=== PATIENT | female | born 1950 | race Caucasian/White ===

== ENCOUNTER 2017-05-25 15:55 | Inpatient (IN) | payer MEDICARE ==
[~2017-05-25] VITALS: Ht 160 cm; Wt 59.9 kg
[2017-05-25] MEDS ORDERED: AMIT25TA PO (16:48)
[2017-05-25] MEDS ORDERED: ACET325T9 PO (16:48)
[2017-05-25] MEDS ORDERED: INSU100V13 SQ (16:48)
[2017-05-25] MEDS ORDERED: SODI45SP4 NS (16:48)
[2017-05-25] MEDS ORDERED: DIPH50CA PO (16:48)
[2017-05-25] MEDS ORDERED: LEVO112T4 PO (16:48)
[2017-05-25] MEDS ORDERED: LISI10TA2 PO (16:48)
[2017-05-25] MEDS ORDERED: CYCL5TAB PO (16:48)
[2017-05-25] MEDS ORDERED: INSU100C4 SQ (16:48)
[2017-05-25] MEDS ORDERED: LACT1CAP6 PO (16:48)
[2017-05-25] MEDS ORDERED: SERT50TA PO (16:48)
[2017-05-25] MEDS ORDERED: FENO145T PO (16:48)
[2017-05-25] MEDS ORDERED: CARV3.122 PO (16:48)
[2017-05-25] MEDS ORDERED: POTA20TA82 PO (16:48)
[2017-05-25] MEDS ORDERED: METF-620 PO (16:48)
[2017-05-25] MEDS ORDERED: ATOR40TA59 PO (16:48)
[2017-05-25] MEDS ORDERED: diphenhydrAMINE HCL 25 MG CAPSULE PO PRN (17:00)
[2017-05-25] MEDS: LISINOPRIL 10 MG TABLET PO SCH (17:00)
[2017-05-25] MEDS: CYCLOBENZAPRINE 10 MG TABLET. PO SCH ×2 (17:00→21:25)
[2017-05-25] MEDS ORDERED: ACETAMINOPHEN 325 MG TABLET. PO PRN (17:00)
[2017-05-25] MEDS ORDERED: SODIUM CHLORIDE 0.65% NASAL SPRAY 45ML BOTTLE. NS PRN (17:00)
[2017-05-25] MEDS: CARVEDILOL 3.125 MG TABLET. PO SCH (18:16)
[2017-05-25] MEDS: predniSONE 10 MG TABLET PO SCH (18:17)
[2017-05-25 19:00] VITALS: BP 116/40
[2017-05-25] MEDS: IPRATRPIUM/ALBUTEROL 0.5/2.5MG 3 ML NEBU. NEB SCH (20:00)
[2017-05-25] MEDS ORDERED: diphenhydrAMINE HCL 25 MG CAPSULE PO ONE (21:00)
[2017-05-25] MEDS ORDERED: FAMOTIDINE 20 MG TABLET. PO ONE (21:00)
[2017-05-25] MEDS: AMITRIPTYLINE HCL 25 MG TABLET. PO SCH (21:25)
[2017-05-25] MEDS: LACTOBACILLUS RHAMNOSUS GG 1 CAPSULE. PO SCH (21:25)
[2017-05-25] MEDS: ATORVASTATIN CALCIUM 40 MG TABLET. PO SCH (21:25)
[2017-05-25 23:00] VITALS: BP 124/57
[2017-05-26] VITALS (7 sets, daily range): BP systolic 103–120; BP diastolic 44–61
[2017-05-26] MEDS: predniSONE 10 MG TABLET PO SCH ×2 (00:11→06:06)
[2017-05-26 05:28] LABS: BASO % 0 % (0-3); EOS % 0 % (0-3); HEMATOCRIT 38.5 % (36.0-47.0); HEMOGLOBIN 12.6 g/dL (12.0-15.5); LYMPH # 0.4 x10^3/uL (1.0-4.8); LYMPH % 8 % (24-48); MEAN CORPUSCULAR HEMOGLOBIN 26 pg (25-35); MEAN CORPUSCULAR HGB CONC 33 g/dL (31-37); MEAN CORPUSCULAR VOLUME 80 fL (79-100); MONO % 2 % (0-9); NEUT % 90 % (31-73); PLATELET COUNT 164 x10^3/uL (140-400); RED BLOOD COUNT 4.84 x10^6/uL (3.50-5.40); RED CELL DISTRIBUTION WIDTH 14.7 % (11.5-14.5); WHITE BLOOD COUNT 5.4 x10^3/uL (4.0-11.0)
[2017-05-26 05:34] LABS: INR 1.1 (0.8-1.1); PROTHROMBIN TIME PATIENT 13.2 SEC (11.7-14.0)
[2017-05-26 05:40] LABS: ALBUMIN 3.7 g/dL (3.4-5.0); ALBUMIN/GLOBULIN RATIO 0.9 (1.0-1.7); CALCIUM 9.5 mg/dL (8.5-10.1); CREATININE 0.8 mg/dL (0.6-1.0); GFR 71.3; POTASSIUM 4.4 mmol/L (3.5-5.1); TOTAL BILIRUBIN 0.8 mg/dL (0.2-1.0); TOTAL PROTEIN 7.9 g/dL (6.4-8.2)
[2017-05-26] MEDS ORDERED: diphenhydrAMINE HCL 25 MG CAPSULE PO PRN (06:00)
[2017-05-26] MEDS ORDERED: FAMOTIDINE 20 MG TABLET. PO PRN (06:00)
[2017-05-26] MEDS: LEVOTHYROXINE 112 MCG TABLET PO SCH (06:06)
[2017-05-26] MEDS ORDERED: LIDOCAINE 2% 20 ML VIAL. ONE (07:15)
[2017-05-26] MEDS ORDERED: IOHEXOL 300 MG/ML 100ML VIAL. ONE (07:15)
[2017-05-26] MEDS: IPRATRPIUM/ALBUTEROL 0.5/2.5MG 3 ML NEBU. NEB SCH ×4 (07:32→20:19)
--- NOTE | 2017-05-26 08:16 | PDOC ---
MODERATE SEDATION ASSESSMENT RISKS/ALTERNATIVES Risks/Alternatives Risks and alternatives of this type of sedation and procedure discussed with: RISK/ALTERNATIVES: Patient H & P ON CHART H & P H & P on chart and reviewed for co-morbid conditions and appropriate labs. H&P ON CHART: Yes STATUS PREG STATUS ASSESSED: N/A MEDS/ALLERGIES REVIEWED Meds/Allergies Reviewed Medications and Allergies including time and route of recently administered narcotics and sedatives. MEDS/ALLERGIES REVIEWED: Yes ASA RATING ASA RATING: II AIRWAY ASSESSMENT Airway Assessment Airway patency, oral function limitations, presence of caps, crowns, dentures, partials, and ability to extend neck assessed. AIRWAY ASSESSMENT: Yes MALLAMPATI SCORE MALLAMPATI SCORE: II PRE-SEDATION ASSESSMENT PRE-SEDATION ASSESSMENT: Yes HIREN KILGORE MD May 26, 2017 08:16
[2017-05-26] MEDS: LISINOPRIL 10 MG TABLET PO SCH (09:00)
[2017-05-26] MEDS: CARVEDILOL 3.125 MG TABLET. PO SCH ×2 (09:16→18:22)
[2017-05-26 09:34] LABS: ANISOCYTOSIS PRESENT; PLT ESTIMATE ADEQUATE (ADEQUATE); POLYCHROMASIA PRESENT
[2017-05-26] MEDS ORDERED: fentaNYL PF VIAL 100 MCG/2 ML VIAL ONE (10:27)
[2017-05-26] MEDS ORDERED: MIDAZOLAM HCL/PF 2 MG/2 ML VIAL. ONE (10:27)
[2017-05-26] MEDS ORDERED: methylPREDNISolone SOD SUCC PF 125 MG/2 ML VIAL. ONE (10:27)
[2017-05-26] MEDS ORDERED: diphenhydrAMINE 50 MG/ML VIAL ONE (10:39)
[2017-05-26] MEDS ORDERED: LIDOCAINE 2% 20 ML VIAL. IJ ONE (10:45)
[2017-05-26] MEDS ORDERED: methylPREDNISolone SOD SUCC PF 125 MG/2 ML VIAL. IV ONE (10:45)
[2017-05-26] MEDS ORDERED: IOHEXOL 300 MG/ML 100ML VIAL. IART ONE (10:45)
[2017-05-26] MEDS ORDERED: diphenhydrAMINE 50 MG/ML VIAL IVP ONE (10:45)
[2017-05-26] MEDS ORDERED: MIDAZOLAM HCL/PF 2 MG/2 ML VIAL. IV ONE (10:45)
[2017-05-26] MEDS ORDERED: fentaNYL PF VIAL 100 MCG/2 ML VIAL IV ONE (10:45)
[2017-05-26] MEDS: POTASSIUM CHLORIDE 20 MEQ TABLET.ER. PO SCH ×2 (13:02→18:23)
[2017-05-26] MEDS: LACTOBACILLUS RHAMNOSUS GG 1 CAPSULE. PO SCH ×2 (13:02→21:15)
[2017-05-26] MEDS: FENOFIBRATE,MICRONIZED 134 MG CAPSULE PO SCH (13:03)
[2017-05-26] MEDS: CYCLOBENZAPRINE 10 MG TABLET. PO SCH ×3 (13:03→21:15)
[2017-05-26] MEDS: INSULIN DETEMIR 300 UNITS/3 ML INSULN.PEN. SQ SCH ×2 (13:06→21:20)
[2017-05-26] MEDS: INSULIN ASPART 300 UNITS/3 ML INSULN.PEN SQ SCH ×2 (13:07→18:26)
[2017-05-26] MEDS: SERTRALINE 50 MG TABLET. PO SCH (13:10)
--- NOTE | 2017-05-26 13:26 | CARD ---
APPROVED REPORT Procedure(s) performed: Moderate Sedation: 41 Minutes LHC, Coronary angiography, Left ventriculogram HISTORY The patient is a 66 year-old female with a history of : previous CHF. INDICATION The indication(s) include : dyspnea. PROCEDURE NARRATIVE The patient was brought electively to the cardiac catheterization lab. A timeout was performed confi rming the patient's name, date of , procedure, and site of procedure. All necessary personnel w ere wearing the appropriate protective equipment and radiation monitor devices. After explaining the risks and benefits of the procedure and alternatives, informed consent was obtained. (See nursing no salyl for medications administered). The right groin was sterilely prepped and draped in the usual fas hion. The right groin was infiltrated with 10 mL of 2% lidocaine for subcutaneous anesthesia. A 5F sheath was inserted into the right femoral artery without difficulty. Right and left coronary angiog charly was performed using 5Fr JR4 and JL4 catheters. Left ventricular end diastolic pressure was obt ained with a pigtail catheter and pullback was performed after left ventriculography. All catheter e xchanges and advancements were performed over a guidewire. At case completion the right groin sheath was removed and hemostasis was achieved with manual compression. The patient tolerated the procedure well and there were no immediate complications. HEMODYNAMICS: LVEDP 25 mm Hg No gradient on LV to aortic pullback. LEFT VENTRICULOGRAM: EF 35% *Severe global hypokinesis. *No significant mitral regurgitation. CORONARY ANGIOGRAPHY: LM is a large caliber vessel with normal angiographic appearance. LAD is a large caliber vessel with normal angiographic appearance. D1 is a moderate caliber vessel with normal angiographic appearance. Ramus is a small caliber vessel with normal angiographic apeparance. LCx is a moderate caliber non-dominant vessel with normal angiographic appearance. OM1 is a moderate caliber vessel with normal angiographic appearance. RCA is a large caliber dominant vessel with normal angiographic appearance. RPDA is a small caliber vessel with normal angiographic appearance. Conclusion 1. Moderately elevated left ventricular filling pressure and moderate LV dysfunction. EF 35% 2. No significant coronary artery disease. Recommendations Aggressive Medical Therapy
[2017-05-26] MEDS ORDERED: ENOXAPARIN 40 MG/0.4 ML SYRINGE. SQ SCH (17:00)
[2017-05-26] MEDS: ATORVASTATIN CALCIUM 40 MG TABLET. PO SCH (21:15)
[2017-05-26] MEDS: AMITRIPTYLINE HCL 25 MG TABLET. PO SCH (21:15)
--- NOTE | 2017-05-26 22:07 | PN ---
DATE: 05/26/2017 SUBJECTIVE: The patient is a 66-year-old female patient who was transferred yesterday from [facility] where she was admitted with a complaint of recurrent episode of chest pain and shortness of breath. She has been having recurrent episodes of orthopnea and paroxysmal nocturnal dyspnea. It has been going on for almost a month and half. She has also poorly controlled diabetes, which she saw an medical care evaluation specialist and her insulin regimen has been adjusted. When she came to the Emergency Room, she was also diagnosed with bilateral lower lobe infiltrate versus edema. Her D-dimer was elevated and did have lactic acidosis. Her three sets of cardiac enzymes that were negative for myocardial infarction. Her beta natriuretic peptide was elevated at 2600. She had an echocardiogram which showed that she has left ventricular systolic dysfunction with an ejection fraction of 30% with mild mitral regurgitation and mild tricuspid regurgitation. Her pulmonary artery pressure was estimated at 42 mmHg with no evidence of significant pericardial effusion. Account Retention Representative recommended cardiac catheterization to which she agreed and was transferred to this facility. She is scheduled for cardiac catheterization this morning. On questioning her, she denied any complaints. She has had no further episodes of chest pain. No orthopnea or paroxysmal nocturnal dyspnea and she had a good night sleep. PHYSICAL EXAMINATION: GENERAL: When I examined her, she looked slightly pale with no jaundice or cyanosis, some thyromegaly. No jugular venous distention. No limb edema. VITAL SIGNS: Her heart rate was 93, blood pressure was 113/45, temperature was 97.3, respiratory rate was 20 and oxygen saturation was 97% on room air. HEAD, EYES, EARS, NOSE AND THROAT: Showed normocephalic and atraumatic. NECK: Supple. HEART: Showed normal first and second heart sounds with no gallop, rub or murmur. CHEST: Clear to auscultation. No crepitation or rhonchi. ABDOMEN: Distended, soft and nontender. NEUROLOGIC: She is awake, alert and responding appropriately. Cranial nerves are intact. She moves her extremities without difficulty. She ambulates without assistance or assistive devices. LABORATORY DATA: Her lab work this morning showed a white cell count 5400, hemoglobin 12.5, hematocrit 38, MCV 80 and a platelet count of 164,000. Her chemistry showed a serum sodium of 135, potassium 4.4, chloride 98, bicarbonate 26, anion gap of 11, BUN 19, creatinine 0.8, estimated GFR was 71 mL per minute, her glucose was 199 and calcium was 9.5. Total bilirubin, AST, ALT, alkaline phosphatase were normal. Her prothrombin time was 13.2 and INR of 1.1. ASSESSMENT: 1. Acute systolic congestive heart failure with ejection fraction of 30%, responding well to IV Lasix. She is now on LUNA inhibitors and beta blockers. 2. Chest pain with three sets of cardiac enzymes that are negative. EKG showed no evidence of ischemic changes; however, ejection fraction is decreased to 30%. 3. Hypertension, well controlled. 4. Hyperlipidemia for which she is on Lipitor. 5. Type 2 diabetes for which she is on metformin, NovoLog and Levemir insulin. I held her metformin as well as her Levemir and NovoLog until this morning as she was kept n.p.o. from midnight last night and she is scheduled for cardiac catheterization. I would reconcile all her medication and she can restart them after the cardiac catheterization except the metformin. MARCELO CROW MD DR: LILIAM/erhan JOB#: [id number] / [id number]
[2017-05-27 03:05] VITALS: BP 115/56
[2017-05-27] MEDS: LEVOTHYROXINE 112 MCG TABLET PO SCH (06:17)
[2017-05-27 07:00] VITALS: BP 109/40
--- NOTE | 2017-05-27 07:16 | HP ---
ADMIT DATE: 05/26/2017 SUBJECTIVE: The patient is a 66-year-old female patient who was transferred yesterday from [facility] where she was admitted with a complaint of recurrent episode of chest pain and shortness of breath. She has been having recurrent episodes of orthopnea and paroxysmal nocturnal dyspnea. It has been going on for almost a month and half. She has also poorly controlled diabetes, which she saw an therapist rrt and her insulin regimen has been adjusted. When she came to the Emergency Room, she was also diagnosed with bilateral lower lobe infiltrate versus edema. Her D-dimer was elevated and did have lactic acidosis. Her three sets of cardiac enzymes that were negative for myocardial infarction. Her beta natriuretic peptide was elevated at 2600. She had an echocardiogram which showed that she has left ventricular systolic dysfunction with an ejection fraction of 30% with mild mitral regurgitation and mild tricuspid regurgitation. Her pulmonary artery pressure was estimated at 42 mmHg with no evidence of significant pericardial effusion. Snowboarding Instructor recommended cardiac catheterization to which she agreed and was transferred to this facility. She is scheduled for cardiac catheterization this morning. On questioning her, she denied any complaints. She has had no further episodes of chest pain. No orthopnea or paroxysmal nocturnal dyspnea and she had a good night sleep. PHYSICAL EXAMINATION: GENERAL: When I examined her, she looked slightly pale with no jaundice or cyanosis, some thyromegaly. No jugular venous distention. No limb edema. VITAL SIGNS: Her heart rate was 93, blood pressure was 113/45, temperature was 97.3, respiratory rate was 20 and oxygen saturation was 97% on room air. HEAD, EYES, EARS, NOSE AND THROAT: Showed normocephalic and atraumatic. NECK: Supple. HEART: Showed normal first and second heart sounds with no gallop, rub or murmur. CHEST: Clear to auscultation. No crepitation or rhonchi. ABDOMEN: Distended, soft and nontender. NEUROLOGIC: She is awake, alert and responding appropriately. Cranial nerves are intact. She moves her extremities without difficulty. She ambulates without assistance or assistive devices. LABORATORY DATA: Her lab work this morning showed a white cell count 5400, hemoglobin 12.5, hematocrit 38, MCV 80 and a platelet count of 164,000. Her chemistry showed a serum sodium of 135, potassium 4.4, chloride 98, bicarbonate 26, anion gap of 11, BUN 19, creatinine 0.8, estimated GFR was 71 mL per minute, her glucose was 199 and calcium was 9.5. Total bilirubin, AST, ALT, alkaline phosphatase were normal. Her prothrombin time was 13.2 and INR of 1.1. ASSESSMENT: 1. Acute systolic congestive heart failure with ejection fraction of 30%, responding well to IV Lasix. She is now on LUNA inhibitors and beta blockers. 2. Chest pain with three sets of cardiac enzymes that are negative. EKG showed no evidence of ischemic changes; however, ejection fraction is decreased to 30%. 3. Hypertension, well controlled. 4. Hyperlipidemia for which she is on Lipitor. 5. Type 2 diabetes for which she is on metformin, NovoLog and Levemir insulin. I held her metformin as well as her Levemir and NovoLog until this morning as she was kept n.p.o. from midnight last night and she is scheduled for cardiac catheterization. I would reconcile all her medication and she can restart them after the cardiac catheterization except the metformin. MARCELO CROW MD DR: LILIAM/rehan JOB#: [id number] / [id number]
[2017-05-27] MEDS: IPRATRPIUM/ALBUTEROL 0.5/2.5MG 3 ML NEBU. NEB SCH ×3 (07:40→15:13)
[2017-05-27 09:05] LABS: CALCIUM 9.6 mg/dL (8.5-10.1); CREATININE 0.8 mg/dL (0.6-1.0); GFR 71.3; POTASSIUM 4.2 mmol/L (3.5-5.1)
[2017-05-27] MEDS: INSULIN DETEMIR 300 UNITS/3 ML INSULN.PEN. SQ SCH (09:08)
[2017-05-27] MEDS: INSULIN ASPART 300 UNITS/3 ML INSULN.PEN SQ SCH ×2 (09:09→12:40)
[2017-05-27] MEDS: POTASSIUM CHLORIDE 20 MEQ TABLET.ER. PO SCH (09:13)
[2017-05-27] MEDS: LACTOBACILLUS RHAMNOSUS GG 1 CAPSULE. PO SCH (09:13)
[2017-05-27] MEDS: CARVEDILOL 3.125 MG TABLET. PO SCH (09:14)
[2017-05-27] MEDS: LISINOPRIL 10 MG TABLET PO SCH (09:15)
[2017-05-27] MEDS: SERTRALINE 50 MG TABLET. PO SCH (09:15)
[2017-05-27] MEDS ORDERED: LEVO500T59 PO (09:15)
[2017-05-27] MEDS: CYCLOBENZAPRINE 10 MG TABLET. PO SCH ×2 (09:15→14:00)
[2017-05-27] MEDS: FENOFIBRATE,MICRONIZED 134 MG CAPSULE PO SCH (09:15)
[2017-05-27 11:00] VITALS: BP 112/56
[2017-05-27] MEDS ORDERED: METO-239 PO (11:54)
[2017-05-27] MEDS ORDERED: FURO-69 PO (11:54)
--- NOTE | 2017-05-27 11:56 | PDOC ---
ALONDRA LUIS APRN 05/27/17 1156: CARDIO Progress Notes Date and Time Date of Service 05/27/17 Time of Evaluation 1015 Subjective Subjective: No Chest Pain, No shortness of breath, No Palpitations, Other Vitals Vitals Vital Signs Date Time Temp Pulse Resp B/P (MAP) Pulse Ox O2 Delivery O2 Flow Rate FiO2 05/27/17 11:42 Room Air 05/27/17 11:00 97.7 97 18 112/56 (74) 100 97.7 Weight Weight [ ] Laboratory Labs Laboratory Tests Test 05/26/17 16:35 05/26/17 20:38 05/27/17 07:56 05/27/17 08:50 Glucose (Fingerstick) 376 mg/dL (70-99) 329 mg/dL (70-99) 251 mg/dL (70-99) Sodium Level 139 mmol/L (136-145) Potassium Level 4.2 mmol/L (3.5-5.1) Chloride Level 101 mmol/L (98-107) Carbon Dioxide Level 28 mmol/L (21-32) Anion Gap 10 (6-14) Blood Urea Nitrogen 29 mg/dL (7-20) Creatinine 0.8 mg/dL (0.6-1.0) Estimated GFR (Cockcroft-Gault) 71.3 Glucose Level 250 mg/dL (70-99) Calcium Level 9.6 mg/dL (8.5-10.1) Physical Exam HEENT: Neck Supple W Full Motion LUNGS: Clear to Auscultation Heart: S1S2, RRR Extremities: No Edema Neurology: alert, oriented, follow commands Assessment Assessment 1. Acute systolic heart failure with NICM; LVEF 30%. 2. Hypertension 3. Hyperlipidemia Recommendations Heart cath showed elevated filling pressures; add daily low-dose diuretic Discontinue BID potassium replacement 2Gm Na diet Convert Coreg to Toprol for better rate control May discharge from a CV standpoint and f/u in our [place] office in 3-4 weeks. HIREN KILGORE MD 05/28/17 0609: CARDIO Progress Notes Plan Plan Late entry for 05/27/2017. Pt. seen and examined. Agree with above SUPERVISOR [employer]ER[employer]SEMBL[employer] note. Thanks. ALONDRA LUIS APRN May 27, 2017 11:56 HIREN KILGORE MD May 28, 2017 06:09
--- NOTE | 2017-05-27 13:46 | PDOC2 ---
Chief Complaint: Chief Complaint: Wound on left heel Problems: (1) Non-pressure chronic ulcer of left heel and midfoot with necrosis of muscle (2) Type 2 diabetes mellitus with foot ulcer Vital Signs: Vital Signs: Vital Signs Date Time Temp Pulse Resp B/P (MAP) Pulse Ox O2 Delivery O2 Flow Rate FiO2 05/26/17 07:00 97.3 93 20 113/45 (67) 97 Room Air 97.3 Vital Signs Date Time Temp Pulse Resp B/P (MAP) Pulse Ox O2 Delivery O2 Flow Rate FiO2 05/27/17 11:42 Room Air 05/27/17 11:00 97.7 97 18 112/56 (74) 100 97.7 Allergies: Allergies: Allergies Coded Allergies Type Severity Reaction Last Updated Verified Iodinated Contrast- Oral and IV Dye Allergy Severe 05/26/17 Yes Penicillins Allergy Intermediate 05/25/17 Yes Sulfa (Sulfonamide Antibiotics) Allergy Intermediate 05/25/17 Yes Medications: Home Meds Active Scripts Furosemide (LASIX) 20 Mg Tablet, 1 TAB PO DAILY, #90 TAB 1 Refill Prov:ALONDRA LUIS APRN 05/27/17 Metoprolol Succinate (METOPROLOL SUCCINATE ( XL )) 25 Mg Tab.er.24h, 1 TAB PO DAILY, #30 TAB 5 Refills Prov:ALONDRA LUIS APRN 05/27/17 Reported Medications Insulin Aspart (NOVOLOG) 100 Unit/1 Ml Cartridge, 20 UNIT SQ TIDWMEALS, EACH 05/25/17 Metformin Hcl (METFORMIN HCL) 1,000 Mg Tablet, 1000 MG PO BIDWMEALS for ANTI- DIABETIC, TAB 0 Refills 05/25/17 Diphenhydramine Hcl (DIPHENHYDRAMINE HCL) 50 Mg Capsule, 0.5 CAP PO Q6HRS Y for ITCHING, #30 CAP 1 Refill 05/25/17 Sodium Chloride (Saline Mist) 44 Ml [place], 44 ML NS Q1HR Y for nasal congestion , SPRAY 05/25/17 Sertraline Hcl (ZOLOFT) 50 Mg Tablet, 1 TAB PO DAILY, #30 TAB 2 Refills 05/25/17 Potassium Chloride (POTASSIUM CHLORIDE) 20 Meq Tablet.er, 20 MEQ PO BID, TAB.SR 05/25/17 Lisinopril (LISINOPRIL) 10 Mg Tablet, 1 TAB PO DAILY, #30 TAB 5 Refills 05/25/17 Levothyroxine Sodium (LEVOTHYROXINE SODIUM) 112 Mcg Tablet, 1 TAB PO DAILY, #30 TAB 5 Refills 05/25/17 Lactobacillus Acidophilus (PROBIOTIC) 1 Each Capsule, 1 EACH PO BID, CAP 05/25/17 Insulin Detemir (LEVEMIR) 100 Unit/1 Ml Vial, 62 UNIT SQ BID, VIAL 05/25/17 Fenofibrate Nanocrystallized (TRICOR) 145 Mg Tablet, 1 TAB PO DAILY, #30 TAB 5 Refills 05/25/17 Cyclobenzaprine Hcl (CYCLOBENZAPRINE HCL) 5 Mg Tablet, 1 TAB PO TID, #30 TAB 05/25/17 Carvedilol (CARVEDILOL) 3.125 Mg Tablet, 1 TAB PO BID, #60 TAB 3 Refills 05/25/17 Atorvastatin Calcium (ATORVASTATIN CALCIUM) 40 Mg Tablet, 1 TAB PO DAILY, #30 TAB 5 Refills 05/25/17 Amitriptyline Hcl (AMITRIPTYLINE HCL) 25 Mg Tablet, 1 TAB PO QHS, #30 TAB 5 Refills 05/25/17 Acetaminophen (TYLENOL) 325 Mg Tablet, 2 TAB PO PRN Q6HRS Y for MILD PAIN, #30 TAB 05/25/17 Date of Onset 3 week hx of open wound on left heel which pt 1st noted while doing her routine diabetic foot care. At home she noted no drainage and this wound is nonpainful. She has no previous difficulty healing wounds, although she has had a large wound, Strep B skin infection of upper right chest wall which required wound vac therapy. She has been to [facility] in the past. Surgical Date NA PMH Type II Diabetes, insulin-requiring, current admission for chest pain with new dx of NICM with EF 35% per cardiac cath by Dr Smith May 26 (yesterday). PSH , lives with daughter, retired web graphic designer. Smoked cigarettes until 1989. Rare EtOH, no street drugs. Review of Systems: No fever. No N/V. No loss of appetite Physical Exam - Wound #1 Wound Exam Location of Modifier: Left Body Site: Heel Associated Signs/Symptoms: None Drainage Amount: None Odor: None/Absent Surrounding Tissue Appearance: pink, no redness,swelling Wound Description: muscle Grade Aguilera: 2 Tunneling: Absent Wound Undermining (CM): 2 Photograph Taken: No Improvement: Other (tissue necrosis) A/P 1. DFU left heel with tissue necrosis, probably muscle necrosis. No s/s infection. Hydrogel dressing for now to help soften the tissue. We will further explore and debride as an outpatient in the [facility] wound clinic next week. 2. Deep tissue injury under right 3rd MT head. Unstageable. Thick callous with dark coloration c/w either bruising or deep tissue necrosis. Hydrogel today, debride as outpt. 3. Dry cracked skin right 3rd toe 4. Dry, callused skin with cracking under left great toe. Problems: (1) Type 2 diabetes mellitus with foot ulcer (2) Non-pressure chronic ulcer of left heel and midfoot with necrosis of muscle Problem Qualifiers (1) Type 2 diabetes mellitus with foot ulcer: Diabetes mellitus petroleum terminal plant operator insulin use: with petroleum terminal plant operator use Qualified Codes: E11.621 - Type 2 diabetes mellitus with foot ulcer; L97.509 - Non-pressure chronic ulcer of other part of unspecified foot with unspecified severity; Z79.4 - longterm (current) use of insulin FARHAD RANGEL MD May 27, 2017 13:46
--- NOTE | 2017-05-27 17:12 | DS ---
DATE OF DISCHARGE: 05/27/2017 HOSPITAL COURSE: The patient is a 66-year-old female patient who was transferred from [facility] where she presented with recurrent episodes of paroxysmal nocturnal dyspnea. Her echocardiogram was low, although had 3 sets of cardiac enzymes that were negative and therefore, she was brought to the [facility] and underwent cardiac catheterization, which basically showed that she has no significant coronary artery disease, but she has moderately elevated left ventricular filling pressures and moderate left ventricular dysfunction with ejection fraction of 35%. On questioning her, she denied any complaints. She has no further episodes of shortness of breath or orthopnea or paroxysmal nocturnal dyspnea, and a decision was made to discharge her home to continue on on all other medication. PHYSICAL EXAMINATION: GENERAL: When I saw her this morning, she looked well and was clearly in no apparent respiratory distress. No pallor, jaundice, cyanosis or thyromegaly. No jugular venous distention. No limb edema. VITAL SIGNS: Her heart rate was 96, blood pressure was 109/40, temperature was 98, respiratory rate was 20 and oxygen saturation was 97% on room air. HEAD, EYES, EARS, NOSE AND THROAT: Showed normocephalic, atraumatic. NECK: Supple. HEART: Showed normal first and second heart sounds with no gallop, rub or murmur. CHEST: Clear to auscultation. No crepitation or rhonchi. ABDOMEN: Distended, soft, nontender. No guarding or rigidity. No organomegaly. Hernial orifices are intact. Bowel sounds normal. NEUROLOGIC: She was awake, alert, responding appropriately. Cranial nerves intact. She moves extremities without difficulty. She ambulates without assistance or assistive devices. Her intake over the last 24 hours was 1600, output was 1700. LABORATORY DATA: As of this morning showed a serum sodium 139, potassium 4.2, chloride 101, bicarbonate 20, anion gap of 10, BUN 29, creatinine 0.8, estimated GFR was 71 mL per minute. Her glucose was ____, calcium was 9.5. Her white cell count was 5400, hemoglobin 12.6, hematocrit 38, MCV 80 and platelet count 264,000. DISCHARGE MEDICATIONS: The patient was discharged home to continue on following medications: Levofloxacin 500 mg once a day, Tylenol 650 mg every 6 hours, amitriptyline 25 mg at bedtime, atorvastatin 40 mg at bedtime, carvedilol 3.125 mg twice a day with meals, cyclobenzaprine 5 mg 3 times a day, diphenhydramine 25 mg every 6 hours, fenofibrate 145 mg once a day. She is on NovoLog insulin 20 units before meals and Levemir insulin 60 units twice a day, Lactobacillus acidophilus 1 p.o. b.i.d., levothyroxine sodium 112 mcg once a day, lisinopril 10 mg once a day, metformin 1000 mg twice a day, potassium chloride 20 mEq twice a day, sertraline 50 mg once a day and saline nasal spray 1 spray to each nostril as needed. FINAL DISCHARGE DIAGNOSES: 1. Acute systolic congestive heart failure. 2. Nonischemic cardiomyopathy. The cardiac catheterization revealed no significant coronary artery disease with impaired ejection systolic function, ejection fraction of 35%. 3. She has type 2 diabetes mellitus, hypertension, hyperlipidemia, hypothyroidism. 4. She has also community-acquired pneumonia for which she will finish the course of treatment in the form of Levaquin. MARCELO CROW MD DR: LILIAM/rehan JOB#: [id number] / [id number]
== END 2017-05-27 15:55 | disposition home or self-care (01) | DRG 286 ==
LOC: 2 SOUTH 15:55
PROVIDERS: ADMIT Internal Medicine; ATTEND Internal Medicine
PROC: 4A023N7 Measurement of Cardiac Sampling and Pressure, Left Heart, Percutaneous Approach (ICD-10-PCS; principal; 2017-05-25)
PROC: B2151ZZ Fluoroscopy of Left Heart using Low Osmolar Contrast (ICD-10-PCS; 2017-05-25)
PROC: B2111ZZ Fluoroscopy of Multiple Coronary Arteries using Low Osmolar Contrast (ICD-10-PCS; 2017-05-25)
DX: I11.0 Hypertensive heart disease with heart failure (principal); J18.9 Pneumonia, unspecified organism; E11.621 Type 2 diabetes mellitus with foot ulcer; E87.2 Acidosis; E11.65 Type 2 diabetes mellitus with hyperglycemia; L97.423 Non-pressure chronic ulcer of left heel and midfoot with necrosis of muscle; I50.21 Acute systolic (congestive) heart failure; I42.9 Cardiomyopathy, unspecified; E03.9 Hypothyroidism, unspecified; E78.5 Hyperlipidemia, unspecified; I08.1 Rheumatic disorders of both mitral and tricuspid valves; L97.509 Non-pressure chronic ulcer of other part of unspecified foot with unspecified severity; Z79.4 Long term (current) use of insulin; Z88.0 Allergy status to penicillin; Z88.2 Allergy status to sulfonamides; Z91.041 Radiographic dye allergy status
CPT/HCPCS: 36415; 80048; 80053; 82962; 85007; 85025; 85610; 93458; 94250; 94640; 94760; 99152; 99153; C1769; C1892; J1200; J1644; J1650; J1815; J1956; J2250; J2930; J3010; J7512; J7620; Q0163; Q9967; J2001

== ENCOUNTER → 2017-06-08 | Outpatient (CLI) | payer MEDICARE ==
[2017-05-27 11:00] VITALS: BP 112/56
[~2017-06-08] MED LIST: ACET325T9 PO; AMIT25TA PO; ATOR40TA59 PO; CARV3.122 PO; CYCL5TAB PO; DIPH50CA PO; FENO145T PO; FURO-69 PO; INSU100C4 SQ; INSU100V13 SQ; LACT1CAP6 PO; LEVO112T4 PO; LEVO500T59 PO; LISI10TA2 PO; METF-620 PO; METO-239 PO; POTA20TA82 PO; SERT50TA PO; SODI45SP4 NS
== END | disposition home or self-care (01) ==
LOC: PMGWOUND 08:57
PROVIDERS: ATTEND Preventive Medicine Undersea and Hyperbaric Medicine
DX: E11.621 Type 2 diabetes mellitus with foot ulcer (principal); L97.423 Non-pressure chronic ulcer of left heel and midfoot with necrosis of muscle; E78.5 Hyperlipidemia, unspecified; E03.9 Hypothyroidism, unspecified; I11.0 Hypertensive heart disease with heart failure; I50.21 Acute systolic (congestive) heart failure; Z87.891 Personal history of nicotine dependence; Z79.4 Long term (current) use of insulin
CPT/HCPCS: 99214

== ENCOUNTER 2018-01-10 11:34 | Observation (INO) | payer MEDICARE ==
[~2018-01-10] VITALS: Ht 160 cm; Wt 66.0 kg
[~2018-01-10 11:34] MED LIST changes: -METF-620 PO; +METF10003 PO
[2018-01-10] MEDS ORDERED: methylPREDNISolone SOD SUCC PF 125 MG/2 ML VIAL. ONE (12:42)
[2018-01-10] MEDS ORDERED: diphenhydrAMINE 50 MG/ML VIAL ONE (12:43)
[2018-01-10 12:44] LABS: HEMATOCRIT 35.7 % (36.0-47.0); HEMOGLOBIN 11.4 g/dL (12.0-15.5); RED BLOOD COUNT 4.54 x10^6/uL (3.50-5.40); RED CELL DISTRIBUTION WIDTH 16.6 % (11.5-14.5); WHITE BLOOD COUNT 4.4 x10^3/uL (4.0-11.0)
[2018-01-10 12:54] LABS: PROTHROMBIN TIME PATIENT 13.3 SEC (11.7-14.0)
[2018-01-10 12:58] LABS: POTASSIUM 4.3 mmol/L (3.5-5.1)
[2018-01-10] MEDS ORDERED: PROPOFOL 50 ML IV ONE (13:15)
[2018-01-10] MEDS ORDERED: MIDAZOLAM HCL/PF 2 MG/2 ML VIAL. ONE ×2 (13:15→13:54)
[2018-01-10] MEDS ORDERED: FAMOTIDINE 20 MG/2 ML VIAL ONE (13:19)
--- NOTE | 2018-01-10 13:25 | PDOC ---
MODERATE SEDATION ASSESSMENT RISKS/ALTERNATIVES Risks/Alternatives Risks and alternatives of this type of sedation and procedure discussed with: RISK/ALTERNATIVES: Patient H & P ON CHART H & P H & P on chart and reviewed for co-morbid conditions and appropriate labs. H&P ON CHART: Yes STATUS PREG STATUS ASSESSED: N/A MEDS/ALLERGIES REVIEWED Meds/Allergies Reviewed Medications and Allergies including time and route of recently administered narcotics and sedatives. MEDS/ALLERGIES REVIEWED: Yes ASA RATING ASA RATING: III AIRWAY ASSESSMENT Airway Assessment Airway patency, oral function limitations, presence of caps, crowns, dentures, partials, and ability to extend neck assessed. AIRWAY ASSESSMENT: Yes MALLAMPATI SCORE MALLAMPATI SCORE: II PRE-SEDATION ASSESSMENT PRE-SEDATION ASSESSMENT: Yes HIREN KILGORE MD Jan 10, 2018 13:25
[2018-01-10] MEDS ORDERED: LIDOCAINE 2%/EPI 1:100,000 20 ML VIAL. ONE (13:26)
--- NOTE | 2018-01-10 13:29 | PDOC1 ---
History and Physical Visit Information Date of Admission: Jan 10, 2018 at 12:51 History of Present Illness History of Present Illness Patient is a pleasant 67-year-old woman who comes into the hospital for a ICD implantation. She has a history of nonischemic cardio myopathy initially diagnosed approximately 6 months ago. She underwent cardiac catheterization which did not reveal any significant obstructive pathology. Subsequently she underwent a MUGA scan in October 2017 at which point her ejection fraction was noted to be 31% despite optimal goal-directed medical therapy as tolerated. Patient reports compliance with her medications. Her most recent A1c has been controlled at 6.3. Cardiac Risk Factors Comments Past medical history notable for the following 1. Diabetes with most recent A1c of 6.3 2. Diabetic foot ulcers, noninfected 3. Nonischemic cardio myopathy 4. Minimal hypertension. Current Medications Current Medications Current Medications Bacitracin 71748 unit/Sodium Chloride 250 ml @ 250 mls/hr 1X ONCE IRR ; Start 01/10/18 at 13:30; Stop 01/10/18 at 14:29 Diphenhydramine HCl (Benadryl) 50 mg STK-MED ONCE .ROUTE ; Start 01/10/18 at 12: 43; Stop 01/10/18 at 12:45; Status DC Famotidine (Pepcid Vial) 20 mg STK-MED ONCE .ROUTE ; Start 01/10/18 at 13:19; Stop 01/10/18 at 13:20; Status DC Methylprednisolone Sodium Succinate (SOLU-Medrol 125MG VIAL) 125 mg STK-MED ONCE .ROUTE ; Start 01/10/18 at 12:42; Stop 01/10/18 at 12:43; Status DC Midazolam HCl (Versed) 2 mg STK-MED ONCE .ROUTE ; Start 01/10/18 at 13:15; Stop 01/10/18 at 13:17; Status DC Propofol 50 ml @ As Directed STK-MED ONCE IV ; Start 01/10/18 at 13:15; Stop at 13:17; Status DC Vancomycin HCl 1 gm/Dextrose 250 ml @ 250 mls/hr 1X ONCE IV ; Start 01/10/18 at 13:30; Stop 01/10/18 at 14:29 Allergies Allergies Allergies Coded Allergies Type Severity Reaction Last Updated Verified Iodinated Contrast- Oral and IV Dye Allergy Severe Anaphylaxis 01/09/18 Yes Penicillins Allergy Intermediate 05/25/17 Yes Sulfa (Sulfonamide Antibiotics) Allergy Intermediate 05/25/17 Yes Social History Comments She is retired. Lives with her daughter. No alcohol, tobacco or illicit drug use. ROS Review of System Notable for fatigue but otherwise negative for 10 out of 14 systems reviewed Physical Exam Comments Her vascular exam is notable for excellent pulses in her lower extremities and 2 + pulses in her upper extremities. She has nonhealing deep diabetic foot wounds at the base of the left foot near the heel and as well as the forefoot. She has some dryness of her third and fourth digits on her right foot. General: Alert, Oriented X3, Cooperative HEENT: Atraumatic Lungs: Clear to auscultation Heart: Regular rate CHEST: Clear to auscultation Abdomen: Normal bowel sounds Extremities: No clubbing, Other Neuro: Normal gait Labs Labs Laboratory Tests Test 01/10/18 12:35 White Blood Count 4.4 x10^3/uL (4.0-11.0) Red Blood Count 4.54 x10^6/uL (3.50-5.40) Hemoglobin 11.4 g/dL (12.0-15.5) Hematocrit 35.7 % (36.0-47.0) Mean Corpuscular Volume 79 fL (79-100) Mean Corpuscular Hemoglobin 25 pg (25-35) Mean Corpuscular Hemoglobin Concent 32 g/dL (31-37) Red Cell Distribution Width 16.6 % (11.5-14.5) Platelet Count 123 x10^3/uL (140-400) Prothrombin Time 13.3 SEC (11.7-14.0) Prothromb Time International Ratio 1.1 (0.8-1.1) Sodium Level 136 mmol/L (136-145) Potassium Level 4.3 mmol/L (3.5-5.1) Chloride Level 101 mmol/L (98-107) Carbon Dioxide Level 20 mmol/L (21-32) Anion Gap 15 (6-14) Blood Urea Nitrogen 20 mg/dL (7-20) Creatinine 1.0 mg/dL (0.6-1.0) Estimated GFR (Cockcroft-Gault) 55.0 Glucose Level 312 mg/dL (70-99) Calcium Level 9.0 mg/dL (8.5-10.1) Laboratory Tests Test 01/10/18 12:35 White Blood Count 4.4 x10^3/uL (4.0-11.0) Red Blood Count 4.54 x10^6/uL (3.50-5.40) Hemoglobin 11.4 g/dL (12.0-15.5) Hematocrit 35.7 % (36.0-47.0) Mean Corpuscular Volume 79 fL (79-100) Mean Corpuscular Hemoglobin 25 pg (25-35) Mean Corpuscular Hemoglobin Concent 32 g/dL (31-37) Red Cell Distribution Width 16.6 % (11.5-14.5) Platelet Count 123 x10^3/uL (140-400) Prothrombin Time 13.3 SEC (11.7-14.0) Prothromb Time International Ratio 1.1 (0.8-1.1) Sodium Level 136 mmol/L (136-145) Potassium Level 4.3 mmol/L (3.5-5.1) Chloride Level 101 mmol/L (98-107) Carbon Dioxide Level 20 mmol/L (21-32) Anion Gap 15 (6-14) Blood Urea Nitrogen 20 mg/dL (7-20) Creatinine 1.0 mg/dL (0.6-1.0) Estimated GFR (Cockcroft-Gault) 55.0 Glucose Level 312 mg/dL (70-99) Calcium Level 9.0 mg/dL (8.5-10.1) ECG EKG: NSR VTE Prophylaxis Ordered VTE Prophylaxis Devices: No VTE Pharmacological Prophylaxi: No Assessment/Plan Assessment/Plan 1. Nonischemic cardio myopathy presenting for implantation of ICD for primary prevention of sudden cardiac I had a long discussion with the patient previously in the office with regards the risks, benefits and alternatives to ICD implantation. She was also referred to [facility] for further discussion of long-term therapy given her nonischemic cardio myopathy but has unable to be seen at their offices yet. She has not had any claus infection and denies any fevers and chills and despite her open diabetic foot ulcer I think at this point he would be appropriate to proceed with ICD implantation as she's had extensive treatment to her diabetic foot ulcers which have not yet improved which is unusual given the fact that she reports her A1c being 6.3. HIREN KILGORE MD Jan 10, 2018 13:29
[2018-01-10] MEDS ORDERED: traMADol 50 MG TABLET PO PRN (13:30)
[2018-01-10] MEDS ORDERED: VANCOMYCIN 1 GM in IV DEXTROSE 5% 250 ML IV ONE (13:30)
[2018-01-10] MEDS ORDERED: ACETAMINOPHEN 325 MG TABLET. PO PRN (13:30)
[2018-01-10] MEDS ORDERED: BACITRACIN 50,000 UNIT in IV NORMAL SALINE 250ML 250 ML IRR ONE (13:30)
[2018-01-10] MEDS ORDERED: IODIXANOL 320 MG/ML 100 ML VIAL. ONE (13:34)
[2018-01-10 13:44] VITALS: BP 152/78
[2018-01-10] MEDS ORDERED: SODIUM CHLORIDE 0.65% NASAL SPRAY 45ML BOTTLE. NS PRN (13:45)
[2018-01-10] MEDS ORDERED: LIDOCAINE 2%/EPI 1:100,000 20 ML VIAL. IJ ONE (13:45)
[2018-01-10] MEDS ORDERED: LEVOTHYROXINE 112 MCG TABLET PO SCH (14:00)
[2018-01-10] MEDS ORDERED: FUROSEMIDE 20 MG TABLET PO SCH (14:00)
[2018-01-10] MEDS: fentaNYL PF VIAL 100 MCG/2 ML VIAL IV PRN ×3 (15:27→16:00)
[2018-01-10] MEDS ORDERED: INSULIN ASPART 100 UNIT/ML 10ML VIAL. SQ PRN (15:30)
[2018-01-10] MEDS ORDERED: MORPHINE SULFATE 2 MG/ML VIAL. IV PRN (15:30)
[2018-01-10] MEDS ORDERED: PROCHLORPERAZINE 10 MG/2 ML VIAL. IV PRN (15:30)
[2018-01-10] MEDS ORDERED: ONDANSETRON PF 4 MG/2 ML VIAL. IV PRN (15:30)
[2018-01-10] MEDS ORDERED: diphenhydrAMINE 50 MG/ML VIAL IV PRN (15:30)
[2018-01-10] MEDS ORDERED: fentaNYL PF VIAL 100 MCG/2 ML VIAL IV PRN (15:30)
[2018-01-10] MEDS ORDERED: MEPERIDINE PF 25 MG/ML VIAL. IV PRN (15:30)
[2018-01-10] MEDS ORDERED: NO ANTICOAGULANT THERAPY. MC PRN (15:30)
--- NOTE | 2018-01-10 15:38 | CARD ---
MR#: [id number] Date of Study: 01/10/2018 Ordering Physician: HIREN KILGORE, Referring Physician: HIREN KILGORE, Tech: APPROVED REPORT EXAM Implantation automatic implantable cardioverter-defibrillator Moderate Sedation: administered by anesthesia HISTORY The Patient is a 67 year-old female with a history of NICM INDICATIONS Primary prevention of SCD for NICM with EF of 30%. 30 mL of 2% lidocaine was infiltrated into the skin and subcutaneous tissues for local anesthesia. A n incision was made over the right infraclavicular fossa and using blunt dissection and cautery a poc ket was created. Venous access was obtained in the left subclavian vein and 8 and 6 F sheaths were i nserted. Subsequently, a Biotronik bipolar active fixation right ventricular lead modelPlexa Pro MRI , SN [id number] was advanced under fluoroscopic guidance and the tip was positioned in the right ventricular ape x. Following this, a Biotronik bipolar active fixation right atrial lead model Solia S 45, SN [id number] was placed in the right atrial appendage under fluoroscopy guidance. The leads were secured into place and were attached to a Biotronik dual-chamber ICD model Iperia 7 DR-T DF4 Pro MRI, SN [id number]. This was placed in the pocket that was subsequently closed in 3 layers. Hemostasis was secured. At the end of procedure, the right ventricular lead showed sensing amplitude of 17.9 mV, impedance of 810 ohms and a threshold of 0.5 volts at 0.4 ms. The right atrial lead showed a sensing amplitude o f 2.2 millivolts, impedance of 489 ohms and a threshold of 1.7 volts at 0.4 ms. DFT testing was completed with appropriate detection of VF and cardioversion to SR by the device with a 15 J shock and no evidence of dropout. Final mode: DDD, 60-120. Patient tolerated the procedure well. There were no immediate complications. CONCLUSION 1. Successful insertion of a dual chamber ICD for primary prevention of SCD in the setting of NICM wi th EF less than 35%. 2. Successful DFT testing. Signed by : Hiren Kilgore, Electronically Approved : 01/10/2018 15:36:53
--- NOTE | 2018-01-10 15:49 | RAD ---
Exam: AP portable chest History: Pacemaker insertion. Comparison: June 13, 2017. Findings: The heart and mediastinal structures are within normal limits for size. Lungs are without infiltrate. No pleural effusion or pneumothorax is identified. There is internal placement of a dual lead AICD by right subclavian approach; one lead projects at right atrium and additional lead projects at right ventricle. Pulmonary vascularity appears accentuated Impression: 1. Pulmonary vascular congestion. 2. Interval placement of dual-lead AICD by right subclavian approach. No postprocedure pneumothorax is identified Electronically signed by: Ezequiel Samuels MD (01/10/2018 3:45 PM) [place] [id number]
[2018-01-10 16:43] VITALS: BP 140/73
[2018-01-10] MEDS: IV NORMAL SALINE 1000ML BAG 1,000 ML IV SCH (17:38)
[2018-01-10] MEDS: CYCLOBENZAPRINE 10 MG TABLET. PO SCH ×2 (17:38→21:15)
[2018-01-10] MEDS: INSULIN LISPRO 300 UNITS/3 ML INSULN.PEN. SQ SCH (17:49)
[2018-01-10 19:34] VITALS: BP 127/58
[2018-01-10] MEDS ORDERED: AMITRIPTYLINE HCL 25 MG TABLET. PO SCH (21:00)
[2018-01-10] MEDS ORDERED: ATORVASTATIN CALCIUM 40 MG TABLET. PO SCH (21:00)
[2018-01-10] MEDS: oxyCODONE/APAP 5/325 1 TAB TABLET PO PRN (21:15)
[2018-01-10] MEDS: INSULIN GLARGINE 300 UNITS/3 ML INSULN.PEN. SQ SCH (21:21)
[2018-01-10 22:57] VITALS: BP 137/59
[2018-01-11] MEDS ORDERED: VANCOMYCIN 1 GM in IV DEXTROSE 5% 250 ML IV ONE (01:30)
[2018-01-11 05:08] VITALS: BP 123/59
[2018-01-11] MEDS ORDERED: LEVOTHYROXINE 112 MCG TABLET PO SCH (06:00)
[2018-01-11 07:00] VITALS: BP 117/59
[2018-01-11] MEDS: IV NORMAL SALINE 1000ML BAG 1,000 ML IV SCH (07:41)
[2018-01-11] MEDS: oxyCODONE/APAP 5/325 1 TAB TABLET PO PRN ×2 (07:44→12:04)
[2018-01-11] MEDS: INSULIN LISPRO 300 UNITS/3 ML INSULN.PEN. SQ SCH ×2 (07:59→11:41)
[2018-01-11] MEDS: CYCLOBENZAPRINE 10 MG TABLET. PO SCH ×2 (08:51→13:42)
[2018-01-11] MEDS ORDERED: FUROSEMIDE 20 MG TABLET PO SCH (09:00)
[2018-01-11] MEDS ORDERED: LISINOPRIL 10 MG TABLET PO SCH (09:00)
[2018-01-11] MEDS ORDERED: SERTRALINE 50 MG TABLET. PO SCH (09:00)
[2018-01-11] MEDS ORDERED: FENOFIBRATE,MICRONIZED 134 MG CAPSULE PO SCH (09:00)
[2018-01-11] MEDS ORDERED: METOPROLOL SUCC 24HR ER 25 MG TAB.ER.24H. PO SCH (09:00)
[2018-01-11] MEDS: INSULIN GLARGINE 300 UNITS/3 ML INSULN.PEN. SQ SCH (09:01)
--- NOTE | 2018-01-11 10:07 | RAD ---
Chest, 2 views, 01/11/2018: HISTORY: Post pacemaker insertion Comparison is made to a study from 01/10/2018. A right-sided transvenous pacing device remains in place with 2 leads extending into the right heart. The heart size and pulmonary vascularity are normal. There is moderate calcific plaquing of the aorta. No pulmonary infiltrate is seen. There is no evidence of pleural fluid or pneumothorax. Mild spurring is present in the spine. IMPRESSION: No acute cardiopulmonary abnormality is detected. Electronically signed by: Herb Martinez MD (01/11/2018 10:04 AM) [facility]
[2018-01-11 11:00] VITALS: BP 112/47
--- NOTE | 2018-01-11 11:03 | PDOC3 ---
IMAN BROWN ARCHITECT IN TRAINING 01/11/18 1103: Discharge Summary Visit Information Date of Admission: Jan 10, 2018 Date of Discharge: Jan 11, 2018 Admitting Diagnosis: NICM, ef 30% Final Diagnosis NICM, S/P AICD Brief Hospital Course Allergies Allergies Coded Allergies Type Severity Reaction Last Updated Verified Iodinated Contrast- Oral and IV Dye Allergy Severe Anaphylaxis 01/10/18 Yes Penicillins Allergy Intermediate 01/10/18 Yes Sulfa (Sulfonamide Antibiotics) Allergy Intermediate 01/10/18 Yes Vital Signs Vital Signs Date Time Temp Pulse Resp B/P (MAP) Pulse Ox O2 Delivery O2 Flow Rate FiO2 01/11/18 08:55 91 120/51 01/11/18 08:00 Room Air 01/11/18 07:44 96 01/11/18 07:00 97.9 16 97.9 Lab Results Laboratory Tests Test 01/10/18 12:35 01/10/18 15:11 01/10/18 17:44 01/10/18 21:16 White Blood Count 4.4 x10^3/uL (4.0-11.0) Red Blood Count 4.54 x10^6/uL (3.50-5.40) Hemoglobin 11.4 g/dL (12.0-15.5) Hematocrit 35.7 % (36.0-47.0) Mean Corpuscular Volume 79 fL (79-100) Mean Corpuscular Hemoglobin 25 pg (25-35) Mean Corpuscular Hemoglobin Concent 32 g/dL (31-37) Red Cell Distribution Width 16.6 % (11.5-14.5) Platelet Count 123 x10^3/uL (140-400) Prothrombin Time 13.3 SEC (11.7-14.0) Prothromb Time International Ratio 1.1 (0.8-1.1) Sodium Level 136 mmol/L (136-145) Potassium Level 4.3 mmol/L (3.5-5.1) Chloride Level 101 mmol/L (98-107) Carbon Dioxide Level 20 mmol/L (21-32) Anion Gap 15 (6-14) Blood Urea Nitrogen 20 mg/dL (7-20) Creatinine 1.0 mg/dL (0.6-1.0) Estimated GFR (Cockcroft-Gault) 55.0 Glucose Level 312 mg/dL (70-99) Calcium Level 9.0 mg/dL (8.5-10.1) Glucose (Fingerstick) 301 mg/dL (70-99) 216 mg/dL (70-99) 205 mg/dL (70-99) Test 01/11/18 07:56 Glucose (Fingerstick) 235 mg/dL (70-99) Laboratory Tests Test 01/10/18 12:35 01/10/18 15:11 01/10/18 17:44 01/10/18 21:16 White Blood Count 4.4 x10^3/uL (4.0-11.0) Red Blood Count 4.54 x10^6/uL (3.50-5.40) Hemoglobin 11.4 g/dL (12.0-15.5) Hematocrit 35.7 % (36.0-47.0) Mean Corpuscular Volume 79 fL (79-100) Mean Corpuscular Hemoglobin 25 pg (25-35) Mean Corpuscular Hemoglobin Concent 32 g/dL (31-37) Red Cell Distribution Width 16.6 % (11.5-14.5) Platelet Count 123 x10^3/uL (140-400) Prothrombin Time 13.3 SEC (11.7-14.0) Prothromb Time International Ratio 1.1 (0.8-1.1) Sodium Level 136 mmol/L (136-145) Potassium Level 4.3 mmol/L (3.5-5.1) Chloride Level 101 mmol/L (98-107) Carbon Dioxide Level 20 mmol/L (21-32) Anion Gap 15 (6-14) Blood Urea Nitrogen 20 mg/dL (7-20) Creatinine 1.0 mg/dL (0.6-1.0) Estimated GFR (Cockcroft-Gault) 55.0 Glucose Level 312 mg/dL (70-99) Calcium Level 9.0 mg/dL (8.5-10.1) Glucose (Fingerstick) 301 mg/dL (70-99) 216 mg/dL (70-99) 205 mg/dL (70-99) Test 01/11/18 07:56 Glucose (Fingerstick) 235 mg/dL (70-99) Brief Hospital Course Ms. Baumann is a 67 yo female admitted for planned AICD placement for primary prevention of SCD related to NICM with ef of 30%. Successful placement of Biotronik dual chamber AICD without complications. Repeat interrogation revealed normal functioning device. Post op right chest surgical pain is controlled. The incision is intact well approximated with steri strips, no oozing, erythema with mild bruising inferior to incision otherwise no hematoma. She did well overnight with VSS. RUE on sling with neurovascular status intact. She is to have a wound check in 2 weeks. Post pacemaker instructions provided and reinforced by staff. she is to continue her home medications with Rx percocet 5/325 1 tab q4 hr prn #25 was given. Discharge Information Condition at Discharge: Stable Follow Up: Weeks (2) Disposition/Orders: D/C to Home Scheduled Amitriptyline Hcl (Amitriptyline Hcl) 25 Mg Tablet, 1 TAB PO QHS, #30 Ref 5 ( Reported) Entered as Reported by: KAREN MCCRACKEN on 05/25/171647 Last Taken: Unknown Dose on 01/09/18 Last Action: Last Taken Edited on 140 by ALEKSANDAR DA SILVA Atorvastatin Calcium (Atorvastatin Calcium) 40 Mg Tablet, 1 TAB PO DAILY, #30 Ref 5 (Reported) Entered as Reported by: KAREN MCCRACKEN on 05/25/171647 Last Taken: Unknown Dose on 01/09/18 Last Action: Last Taken Edited on 140 by ALEKSANDAR DA SILVA Cyclobenzaprine Hcl (Cyclobenzaprine Hcl) 5 Mg Tablet, 1 TAB PO TID, #30 ( Reported) Entered as Reported by: KAREN MCCRACKEN on 05/25/171647 Last Taken: Unknown Dose on 01/09/18 Last Action: Last Taken Edited on 1405 by ALEKSANDAR DA SILVA Fenofibrate Nanocrystallized (Tricor) 145 Mg Tablet, 1 TAB PO DAILY, #30 Ref 5 ( Reported) Entered as Reported by: KAREN MCCRACKEN on 05/25/171647 Last Taken: Unknown Dose on 01/09/18 Last Action: Last Taken Edited on 140 by ALEKSANDAR DA SILVA Furosemide (Lasix) 20 Mg Tablet, 1 TAB PO DAILY, #90 Ref 1 Prescribed by: ALONDRA LUIS APRN on 05/27/17 1155 Last Taken: Unknown Dose on 01/09/18 Last Action: Last Taken Edited on 1404 by ALEKSANDAR DA SILVA Insulin Aspart (Novolog) 100 Unit/1 Ml Cartridge, 20 UNIT SQ TIDWMEALS, ( Reported) Entered as Reported by: KAREN MCCRACKEN on 05/25/171647 Last Taken: Unknown Dose on 01/09/18 Last Action: Last Taken Edited on 1404 by ALEKSANDAR DA SILVA Insulin Detemir (Levemir) 100 Unit/1 Ml Vial, 62 UNIT SQ BID, (Reported) Entered as Reported by: KAREN MCCRACKEN on 05/25/171647 Last Taken: 37 units on 01/09/18 Last Action: Last Taken Edited on 1404 by ALEKSANDAR DA SILVA Lactobacillus Acidophilus (Probiotic) 1 Each Capsule, 1 EACH PO BID, (Reported) Entered as Reported by: KAREN MCCRACKEN on 05/25/171647 Levothyroxine Sodium (Levothyroxine Sodium) 112 Mcg Tablet, 1 TAB PO DAILY, #30 Ref 5 (Reported) Entered as Reported by: KAREN MCCRACKEN on 05/25/171647 Last Taken: Unknown Dose on 01/09/18 Last Action: Last Taken Edited on 1404 by ALEKSANDAR DA SILVA Lisinopril (Lisinopril) 10 Mg Tablet, 1 TAB PO DAILY, #30 Ref 5 (Reported) Entered as Reported by: KAREN MCCRACKEN on 05/25/171647 Last Taken: Unknown Dose on 01/09/18 Last Action: Last Taken Edited on 1404 by ALEKSANDAR DA SILVA Metformin Hcl (Metformin Hcl) 1,000 Mg Tablet, 1,000 MG PO BIDWMEALS for ANTI- DIABETIC, Ref 0 (Reported) Entered as Reported by: KAREN MCCRACKEN on 05/25/171647 Last Taken: Unknown Dose on 01/09/18 Last Action: Last Taken Edited on 1404 by ALEKSANDAR DA SILVA Metoprolol Succinate (Metoprolol Succinate ( Xl )) 25 Mg Tab.er.24h, 1 TAB PO DAILY, #30 Ref 5 Prescribed by: ALONDRA LUIS APRN on 05/27/17 1155 Last Taken: Unknown Dose on 01/09/18 Last Action: Last Taken Edited on 1404 by ALEKSANDAR DA SILVA Sertraline Hcl (Zoloft) 50 Mg Tablet, 1 TAB PO DAILY, #30 Ref 2 (Reported) Entered as Reported by: KAREN MCCRACKEN on 05/25/171647 Last Taken: Unknown Dose on 01/09/18 Last Action: Last Taken Edited on 1405 by ALEKSANDAR DA SILVA Scheduled PRN Acetaminophen (Tylenol) 325 Mg Tablet, 2 TAB PO PRN Q6HRS PRN for MILD PAIN, #30 (Reported) Entered as Reported by: KAREN MCCRACKEN on 05/25/171647 Last Action: Continued on 01/10/181326 by DOMINGA WEEMS Sodium Chloride (Saline Mist) 44 Ml Palmetto, 44 ML NS Q1HR PRN for nasal congestion, (Reported) Entered as Reported by: KAREN MCCRACKEN on 05/25/171647 Last Action: Converted on 01/10/181326 by DOMINGA WEEMS Patient Instructions Patient Instructions Must know & what to expect after device implant: 1. Your surgical dressing should be removed prior to discharge from the hospital, but allow the steri- strips to fall off naturally. 2. Activity restrictions: DO NOT raise arm above shoulder level, lift anything heavier than a gallon of milk, and no push or pull motions such as vacuuming/lawn mowing, no swinging motions (golf), etc for 4 weeks. 3. It is OK to use a cell phone or other electronic devices just be sure you do not store it in a breast pocket on the side where the device was placed. 4. Device will be interrogated prior to your discharge from the hospital and then every 3 months for defibrillators and every 6 months for pacemakers. You may be asked to have your device checked remotely from home as well, but this will depend on your particular physicians preference. 5. You may remove the arm immobilizer the day after device placement. Wear the arm immobilizer/splint at night (during sleep times) for 2 week to prevent unintended arm movement that can cause lead dislodgement. 6. Do not drive for one week as the task of driving may lead to unintended arm motion that may cause lead dislodgement. The seatbelt will also rub against the incision site & cause irritation. 7. It is our recommendation that you utilize Tylenol at home for pain control. You need to call our office if you are having uncontrollable pain at the incision site. 8. Keep your incision clean and dry. It is OK to shower. DO NOT submerge in bath, pool, or hot tub, until cleared by your doctor, as this could lead to increase risk of infection.. It is OK to use regular soap just do not scrub the incision site. Water spray from shower should not directly hit the incision. Be sure to blot dry not rub. 9. Inspect your incision daily. If you notice any increased redness, swelling , or drainage, or if you start running a fever, call the office immediately. The number is [phone]. 10. For women, if you need to protect against irritation from the bra straps, you can place a piece of gauze over the incision site for cushion. Please be sure to tape it loosely to allow air to the site & remove the gauze when you remove the bra. 11. Be sure to carry your device identification information card in your wallet/purse at all times. 12. It is OK to go through security at the airport with your device, but be sure to let the TSA know prior to proceeding as the security settings change depending on varying factors. Please do whatever is requested by security at that time. 13. Some of the newer devices may be MRI compatible but, currently, the use of these devices is not widespread, so you likely will not be able to have an MRI. Please clarify this with your physician. Special instructions for defibrillator patients: If your device recognizes a rhythm that requires treatment with a shock, you will most likely feel the shock. This is usually not a subtle feeling and it is uncomfortable. Please follow these steps if you receive a shock: Call the office if you receive one shock. Go to the emergency room if you receive two consecutive shocks- please have someone drive you & call 911 if nobody is available- DO NOT drive yourself. Call 911 if you receive more than 2 consecutive shocks. If at any time, you feel lightheaded or dizzy/faint, stop what you are doing & lie down immediately. If you are driving, get to the side of the road quickly, turn your car off & call 911 on your cell phone. DO NOT continue to drive as this may cause an accident that seriously injures yourself &/or others. Call the office at [phone] for any questions or concerns. HIREN KILGORE MD 01/11/18 2359: Discharge Summary Brief Hospital Course Brief Hospital Course Pt. seen and examined. Agree with above MANAGER OF DIGITAL note. No acute events overnight. Right subclavian site is c/d/i. Mild bruising at insertion site. No warmth. Interrogation is wnl. Supportive with wound check in 1-2 weeks IMAN BROWN APRN Jan 11, 2018 11:03 HIREN KILGORE MD Jan 11, 2018 23:59
== END 2018-01-11 15:55 | disposition home or self-care (01) ==
LOC: SURG 11:34 → 2 SOUTH 12:51 → INTOOBSV 12:51
PROVIDERS: ADMIT Internal Medicine Cardiovascular Disease; ATTEND Internal Medicine Cardiovascular Disease
DX: I42.9 Cardiomyopathy, unspecified (principal); E11.621 Type 2 diabetes mellitus with foot ulcer; Z95.0 Presence of cardiac pacemaker
CPT/HCPCS: 33249; 36415; 71045; 71046; 80048; 82962; 85027; 85610; 93641; 96365; 96366; 96372; C1721; C1895; C1898; G0378; G0379; J1815; J2250; J2704; J2930; J3010; J3370; J3490; J7030; J7050; 33230; J1200

== ENCOUNTER → 2018-12-04 | Outpatient (CLI) | payer MEDICARE ==
[2018-03-26 15:05] VITALS: BP 133/56
[~2018-12-04] MED LIST changes: +CARV3.1210 PO; -CARV3.122 PO; +GADOTERATE 7.5 MMOL/15ML VIAL. IVP ONE; +INSU100I11 SQ; +INSU100I13 SQ; -METF10003 PO; +METF10007 PO; +METO-269 PO; +NYST100054 SWSW; +Pantoprazole PO; +VALA500T PO
[2018-12-04 12:05] LABS: CREATININE 0.9 mg/dL (0.6-1.0); GFR 61.9
--- NOTE | 2018-12-04 13:09 | RAD ---
MRI Brain with and without contrast History: Hearing loss, burst tympanum Technique: Multiplanar, multi sequential pre and postcontrast MR imaging was performed of the brain to include dedicated images of the internal auditory canals. Comparison: None Findings: There is no evidence of recent infarct or cytotoxic edema. The ventricles, sulci, and cisterns are within normal limits in size and configuration. There is no significant midline shift, intraaxial mass effect, or focal abnormal extra-axial fluid collection. There is very mild T2 and FLAIR hyperintense signal abnormality of the supratentorial parenchyma, a few small foci in the deep white matter and also minimally of the anterior right external capsule. Tiny focus of increased T2 signal of the right thalamus may be due to sequela of tiny old lacunar infarct. There is a small left frontal developmental venous anomaly. There is no nodular parenchymal or leptomeningeal enhancement. There is preservation of the major intracranial flow-voids at the skull base. The cerebellar tonsils are normal in location. There is no significant abnormality of the pineal gland or pituitary gland. There is very minimal patchy ethmoid air cell and frontal sinus mucosal thickening, also very minimally of the anterior maxillary sinuses. There is very minimal patchy fluid of the left mastoid air cells, right mastoid air cells aerated. There is preserved marrow signal of the clivus. There is no nodular enhancement of the cerebellopontine angles or the internal auditory canals. Vestibules, cochlea, semicircular canals appear normally formed bilaterally. There is degenerative change of the right temporomandibular joint. There is nonspecific relative decreased T1 signal of the marrow of the visualized C4 vertebral body, not fully characterized on other images. There is degenerative disc disease of visualized superior cervical spine. Impression: 1. There is no evidence of recent infarct or abnormal intracranial enhancement, no enhancing mass of the cerebellopontine angles or the internal auditory canals. Minimal T2 and FLAIR hyperintense signal of the supratentorial parenchyma is nonspecific although more commonly due to chronic microvascular ischemic disease in a patient this age. 2. There is relative decreased T1 signal of the visualized C4 vertebral body otherwise not characterized on other images. Underlying marrow edema is not excludable based on the findings although could be related to sclerosis. Electronically signed by: Jean Claude Archuleta MD (12/04/2018 1:06 PM) [id number]
== END | disposition home or self-care (01) ==
LOC: MRI 10:55
PROVIDERS: ATTEND Otolaryngology
DX: H91.8X2 Other specified hearing loss, left ear (principal); G93.89 Other specified disorders of brain; M50.30 Other cervical disc degeneration, unspecified cervical region
CPT/HCPCS: 36415; 70553; 82565; 84520; A9575

== ENCOUNTER 2019-08-26 16:37 | Emergency (ER) | payer MEDICARE ==
[~2019-08-26] VITALS: Ht 160 cm; Wt 62.0 kg
[~2019-08-26 16:37] MED LIST changes: -GADOTERATE 7.5 MMOL/15ML VIAL. IVP ONE; +POTA20TA4 PO; -POTA20TA82 PO; -VALA500T PO; +VALA500T9 PO
[2019-08-26 17:40] LABS: BASO % 1 % (0-3); EOS % 1 % (0-3); HEMATOCRIT 38.3 % (36.0-47.0); HEMOGLOBIN 12.8 g/dL (12.0-15.5); LYMPH # 0.4 x10^3/uL (1.0-4.8); LYMPH % 13 % (24-48); MEAN CORPUSCULAR HEMOGLOBIN 28 pg (25-35); MEAN CORPUSCULAR HGB CONC 33 g/dL (31-37); MEAN CORPUSCULAR VOLUME 84 fL (79-100); MONO # 0.2 x10^3/uL (0.0-1.1); MONO % 7 % (0-9); NEUT # 2.5 x10^3/uL (1.8-7.7); NEUT % 78 % (31-73); PLATELET COUNT 96 x10^3/uL (140-400); RED BLOOD COUNT 4.56 x10^6/uL (3.50-5.40); RED CELL DISTRIBUTION WIDTH 14.7 % (11.5-14.5); WHITE BLOOD COUNT 3.2 x10^3/uL (4.0-11.0)
[2019-08-26 17:49] LABS: CALCIUM 8.9 mg/dL (8.5-10.1); CREATININE 0.9 mg/dL (0.6-1.0); GFR 61.9; POTASSIUM 4.4 mmol/L (3.5-5.1)
[2019-08-26 17:55] LABS: ALBUMIN 3.8 g/dL (3.4-5.0); ALBUMIN/GLOBULIN RATIO 1.3 (1.0-1.7); TOTAL BILIRUBIN 0.4 mg/dL (0.2-1.0); TOTAL PROTEIN 6.8 g/dL (6.4-8.2)
--- NOTE | 2019-08-26 18:36 | RAD ---
Study: ACUTE ABDOMEN SERIES Indication: Abdominal distention. Comparison: CT of the abdomen 03/15/2018 Findings: Right chest wall AICD. No acute radiographic abnormality of the chest. Surgical clips projecting over the left hemithorax/axilla. Degenerative changes at the right shoulder. Nonobstructive bowel gas pattern. Hepatosplenomegaly. Mild/moderate constipation. No free air seen under the diaphragm. Multifocal chronic osseous findings. Impression: 1. Nonobstructive bowel gas pattern. Mild/moderate constipation. 2. Hepatosplenomegaly. 3. No acute radiographic abnormality of the chest. Electronically signed by: GAURI PAIGE MD (08/26/2019 6:33 PM) [id number]
--- NOTE | 2019-08-26 19:28 | PHYS DOC ---
Past Medical History Past Medical History: Diabetes-Type II, Hypertension Additional Past Medical Histor: HEART FAILURE, PSORIASIS (JOZEF SILVA APRN) Past Surgical History: Hysterectomy Additional Past Surgical Histo: PACEMAKER/DEFIB IN DECEMBER (JOZEF SILVA APRN) Smoking Status: Never Smoker Alcohol Use: None Drug Use: None (JOZEF SILVA APRN) Attending Signature I have participated in the care of this patient and I have reviewed and agree with all pertinent clinical information above including history, exam, and recommendations. (ROSALINE RAMIREZ MD) Adult General Chief Complaint Chief Complaint: ABDOMINAL PAIN HPI HPI Patient is a 68 year old female, accompanied by her daughter, who presents to the emergency department for problems with elevated blood sugar. Patient states that she signed herself out of [facility] [place] at approximately 1630 this evening after being admitted for influenza and high blood sugar. She said she signed out against medical advise because she felt like they were not addressing her blood sugar. Patient states she was only given 1 does of insulin while she was there. She reports that she was given a liter of fluids and then started on continuous IV fluids. She reports that her abdomen feels like it is bloated after those fluids, her last BM was earlier today and was normal per pt. She denies any shortness of breath, chest pain, palpitations, or lower extremity swelling. Patient denies any fever, cough, vomiting, diarrhea, dysuria, or hematuria. She currently complains of a headache, sinus pressure, runny nose, body aches, and nausea. She reports that these symptoms started over 5 days ago. She rates her discomfort 8 out of 10 on the pain scale, she denies any alleviating factors. Patient states she has experienced increased urinary frequency, polydipsia, and polyphagia for a few months now. She has an ap pointment with the motor and chassis inspector in October. (JOZEF SILVA APRN) Review of Systems Review of Systems All other ROS is negative unless otherwise noted in HPI. (JOZEF SILVA APRN) Allergies Allergies Allergies Coded Allergies Type Severity Reaction Last Updated Verified Iodinated Contrast Media Allergy Severe Anaphylaxis 03/21/18 Yes Penicillins Allergy Severe Anaphylaxis 03/21/18 Yes Sulfa (Sulfonamide Antibiotics) Allergy Intermediate 03/21/18 Yes (ROSALINE RAMIREZ MD) Physical Exam Physical Exam See Above Constitutional: Well developed, well nourished, no acute distress, non-toxic appearance. [] HENT: Normocephalic, atraumatic, bilateral external ears normal, oropharynx moist, no oral exudates, nose normal. [] Eyes: PERRLA, EOMI, conjunctiva normal, no discharge. [] Neck: Normal range of motion, no stridor. [] Cardiovascular:Heart rate regular rhythm, no murmur [] Lungs & Thorax: Bilateral breath sounds clear to auscultation, Respirations even and unlabored, no retractions, no respiratory distress [] Abdomen: Bowel sounds normal, firm and distended, no tenderness, no masses, no pulsatile masses. [] Skin: Warm, dry, no erythema, no rash. [] Back: No tenderness, no CVA tenderness. [] Extremities: No cyanosis, ROM intact Neurologic: Alert and oriented X 3, no focal deficits noted. [] Psychologic: Affect normal, judgement normal, mood normal. [] (JOZEF SILVA APRN) Current Patient Data Vital Signs Vital Signs Date Time Temp Pulse Resp B/P (MAP) Pulse Ox O2 Delivery O2 Flow Rate FiO2 08/26/19 19:35 78 15 154/68 (96) 97 Room Air 08/26/19 16:51 98.2 98.2 (ROSALINE RAMIREZ MD) Lab Values Laboratory Tests Test 08/26/19 17:23 08/26/19 17:48 White Blood Count 3.2 x10^3/uL (4.0-11.0) L Red Blood Count 4.56 x10^6/uL (3.50-5.40) Hemoglobin 12.8 g/dL (12.0-15.5) Hematocrit 38.3 % (36.0-47.0) Mean Corpuscular Volume 84 fL (79-100) Mean Corpuscular Hemoglobin 28 pg (25-35) Mean Corpuscular Hemoglobin Concent 33 g/dL (31-37) Red Cell Distribution Width 14.7 % (11.5-14.5) H Platelet Count 96 x10^3/uL (140-400) L Neutrophils (%) (Auto) 78 % (31-73) H Lymphocytes (%) (Auto) 13 % (24-48) L Monocytes (%) (Auto) 7 % (0-9) Eosinophils (%) (Auto) 1 % (0-3) Basophils (%) (Auto) 1 % (0-3) Neutrophils # (Auto) 2.5 x10^3/uL (1.8-7.7) Lymphocytes # (Auto) 0.4 x10^3/uL (1.0-4.8) L Monocytes # (Auto) 0.2 x10^3/uL (0.0-1.1) Eosinophils # (Auto) 0.0 x10^3/uL (0.0-0.7) Basophils # (Auto) 0.0 x10^3/uL (0.0-0.2) Sodium Level 138 mmol/L (136-145) Potassium Level 4.4 mmol/L (3.5-5.1) Chloride Level 102 mmol/L (98-107) Carbon Dioxide Level 28 mmol/L (21-32) Anion Gap 8 (6-14) Blood Urea Nitrogen 16 mg/dL (7-20) Creatinine 0.9 mg/dL (0.6-1.0) Estimated GFR (Cockcroft-Gault) 61.9 BUN/Creatinine Ratio 18 (6-20) Glucose Level 350 mg/dL (70-99) H Calcium Level 8.9 mg/dL (8.5-10.1) Total Bilirubin 0.4 mg/dL (0.2-1.0) Aspartate Amino Transferase (AST) 78 U/L (15-37) H Alanine Aminotransferase (ALT) 84 U/L (14-59) H Alkaline Phosphatase 98 U/L (46-116) RP-Ano-M-Type Natriuretic Peptide 467 pg/mL (0-124) H Total Protein 6.8 g/dL (6.4-8.2) Albumin 3.8 g/dL (3.4-5.0) Albumin/Globulin Ratio 1.3 (1.0-1.7) Glucose (Fingerstick) 332 mg/dL (70-99) H Laboratory Tests 08/26/19 17:23 Laboratory Tests 08/26/19 17:23 (ROSALINE RAMIREZ MD) EKG EKG [] (JOZEF SILVA APRN) Radiology/Procedures Radiology/Procedures PROCEDURE: ACUTE ABDOMEN SERIES Study: ACUTE ABDOMEN SERIES Indication: Abdominal distention. Comparison: CT of the abdomen 03/15/2018 Findings: Right chest wall AICD. No acute radiographic abnormality of the chest. Surgical clips projecting over the left hemithorax/axilla. Degenerative changes at the right shoulder. Nonobstructive bowel gas pattern. Hepatosplenomegaly. Mild/moderate constipation. No free air seen under the diaphragm. Multifocal chronic osseous findings. Impression: 1. Nonobstructive bowel gas pattern. Mild/moderate constipation. 2. Hepatosplenomegaly. 3. No acute radiographic abnormality of the chest. [] (JOZEF SILVA WATCH ELECTRICIAN) Course & Med Decision Making Course & Med Decision Making Pertinent Labs and Imaging studies reviewed. (See chart for details) 1849- Spoke with Dr. Rose about patient who signed out from [facility]; Dr. Rose states that he is aware of patient leaving the facility. SHe did not want to take tamiflu for her flu symptoms and left AMA. Dr Rose states he is not her primary care doctor. CBC revealed white blood cell count of 3.2, platelets of 96, historically patient has a low CBC and platelets; initial glucose is 350, repeats bedside glucose is 332, patient has slightly elevated AST of 78 and ALP of 84, BNP is 467 Abdominal series revealed a nonobstructive bowel gas pattern with mild to moderate constipation, no acute findings in the chest, and hepatosplenomegaly. I discussed these findings with the patient, she stated that she would like to go home. I encouraged the patient to take her insulin as prescribed upon arriving home and to return to the emergency room if symptoms worsen. Patient declined a prescription for Tamiflu. Supportive care was recommended. She and her daughter verbalized an understanding of home care, medications, follow-up, and return to ED instructions and were in agreement with the plan of care. [] (JOZEF SILVA WATCH ELECTRICIAN) Dragon Disclaimer Dragon Disclaimer This electronic medical record was generated, in whole or in part, using a voice recognition dictation system. (JOZEF SILVA WATCH ELECTRICIAN) Departure Departure Impression: Primary Impression: Hyperglycemia Additional Impression: Influenza B Disposition: HOME, SELF-CARE Condition: STABLE Referrals: CHANDAN ROWELL DO (PCP) Patient Instructions: Hyperglycemia, [id number], Influenza, Adult, [id number] Additional Instructions: Take your home diabetes medications as previously prescribed. Alternate Tylenol and ibuprofen as needed for fever. Increase clear fluids and rest. Diet as tolerated. Recommend use of [id number] flu medications as needed for relief of your symptoms. Follow up with your primary care doctor if symptoms persist, return to the ER symptoms worsen. Problem Qualifiers JOZEF SILVA APRN Aug 26, 2019 19:28 ROSALINE RAMIREZ MD Aug 27, 2019 05:28
[2019-08-26 19:35] VITALS: BP 154/68
== END 2019-08-26 19:38 | disposition home or self-care (01) ==
LOC: ER 16:37
DX: E11.65 Type 2 diabetes mellitus with hyperglycemia (principal); J10.1 Influenza due to other identified influenza virus with other respiratory manifestations; I11.0 Hypertensive heart disease with heart failure; I50.9 Heart failure, unspecified; L40.9 Psoriasis, unspecified; R14.0 Abdominal distension (gaseous); R35.0 Frequency of micturition; Z90.710 Acquired absence of both cervix and uterus; Z95.810 Presence of automatic (implantable) cardiac defibrillator; Z88.0 Allergy status to penicillin; Z91.041 Radiographic dye allergy status; Z88.2 Allergy status to sulfonamides
CPT/HCPCS: 36415; 74022; 80053; 82962; 83880; 85025; 99285-25

== ENCOUNTER 2020-02-10 14:38 | Emergency (ER) | payer MEDICARE ==
[~2020-02-10] VITALS: Ht 160 cm; Wt 59.0 kg
[~2020-02-10 14:38] MED LIST changes: -LEVO112T4 PO; +LEVO112T49 PO
[2020-02-10 15:42] LABS: BASO % 0 % (0-3); EOS % 1 % (0-3); HEMATOCRIT 28.6 % (36.0-47.0); HEMOGLOBIN 9.2 g/dL (12.0-15.5); LYMPH # 0.5 x10^3/uL (1.0-4.8); LYMPH % 10 % (24-48); MEAN CORPUSCULAR HEMOGLOBIN 26 pg (25-35); MEAN CORPUSCULAR HGB CONC 32 g/dL (31-37); MEAN CORPUSCULAR VOLUME 81 fL (79-100); MONO # 0.3 x10^3/uL (0.0-1.1); MONO % 6 % (0-9); NEUT # 3.9 x10^3/uL (1.8-7.7); NEUT % 83 % (31-73); PLATELET COUNT 167 x10^3/uL (140-400); RED BLOOD COUNT 3.53 x10^6/uL (3.50-5.40); RED CELL DISTRIBUTION WIDTH 15.7 % (11.5-14.5); WHITE BLOOD COUNT 4.7 x10^3/uL (4.0-11.0)
[2020-02-10 15:52] LABS: CALCIUM 9.1 mg/dL (8.5-10.1); CREATININE 0.9 mg/dL (0.6-1.0); GFR 61.7; POTASSIUM 3.9 mmol/L (3.5-5.1)
[2020-02-10 15:58] LABS: ALBUMIN 3.8 g/dL (3.4-5.0); TOTAL BILIRUBIN 0.4 mg/dL (0.2-1.0); TOTAL PROTEIN 7.6 g/dL (6.4-8.2)
[2020-02-10] MEDS ORDERED: NEOMY/BACITR/POLYMYXIN OINT PACKET. TP ONE (17:00)
--- NOTE | 2020-02-10 17:29 | PHYS DOC ---
Past Medical History Past Medical History: Diabetes-Type II, Hypertension Additional Past Medical Histor: HEART FAILURE, PSORIASIS Past Surgical History: Hysterectomy Additional Past Surgical Histo: PACEMAKER/DEFIB IN DECEMBER Smoking Status: Never Smoker Alcohol Use: None Drug Use: None General Adult EDM: Chief Complaint: FOOT INJURY PAIN HPI: HPI: Patient is a 69 year old female who presents with concerns that her hemoglobin may be too low for her daughter to go on vacation. Patient states that she has diabetic foot ulcers for greater than 10 years that she has been taking care of at home, intermittently sees wound care for. Patient's daughter is at bedside, states that sometimes her mother bleeds from her diabetic foot ulcers and she is concerned that her hemoglobin level is too low for her to go on vacation and thinks that her mother might need admission to the hospital. The patient however states that she does not want admission to the hospital, however she will consider if her hemoglobin is too low. Patient denies physical complaints other than her diabetic foot ulcers which she cares for at home. Patient denies fever or chills, denies concerns of COVID-19 exposure. Patient denies any visual changes, any nasal congestion, cough, shortness of breath, chest pain, or swelling of her extremities. Patient denies any GI problems to include abdominal pain nausea vomiting diarrhea and constipation. Patient denies any difficulty urinating, denies urinary incontinence. Patient denies any back pains, joint pains, skin rashes. She denies any headaches or focal weaknesses or sensory changes. Patient denies any swelling of her glands, any increased urination, or increased thirst. Patient states her sugars are well controlled at home and she has no concerns for diabetic ketoacidosis. Patient denies any recent life changes, depressions, anxiety, homicidal suicidal ideations. Review of Systems: Review of Systems: Constitutional: Denies fever or chills. [] Eyes: Denies change in visual acuity. [] HENT: Denies nasal congestion or sore throat. [] Respiratory: Denies cough or shortness of breath. [] Cardiovascular: Denies chest pain or edema. [] GI: Denies abdominal pain, nausea, vomiting, bloody stools or diarrhea. [] : Denies dysuria. [] Musculoskeletal: Denies back pain or joint pain. [] Integument: Denies rash. [] Neurologic: Denies headache, focal weakness or sensory changes. [] Endocrine: Denies polyuria or polydipsia. [] Lymphatic: Denies swollen glands. [] Psychiatric: Denies depression or anxiety. [] Heart Score: Risk Factors: Risk Factors: DM, Current or recent (<one month) smoker, HTN, HLP, family history of CAD, obesity. Risk Scores: Score 0 - 3: 2.5% MACE over next 6 weeks - Discharge Home Score 4 - 6: 20.3% MACE over next 6 weeks - Admit for Clinical Observation Score 7 - 10: 72.7% MACE over next 6 weeks - Early Invasive Strategies Current Medications: Current Medications Medications (Trade) Dose Ordered Sig/Kayden Start Time Stop Time Status Last Admin Dose Admin Neomycin/ Polymyxin/ Bacitracin (Triple Antibiotic Ointment) 1 pkt 1X ONCE 02/10/20 17:00 02/10/20 17:01 DC 02/10/20 17:00 1 PKT Allergies: Allergies: Allergies Coded Allergies Type Severity Reaction Last Updated Verified Iodinated Contrast Media Allergy Severe Anaphylaxis 03/21/18 Yes Penicillins Allergy Severe Anaphylaxis 03/21/18 Yes Sulfa (Sulfonamide Antibiotics) Allergy Intermediate 03/21/18 Yes Physical Exam: PE: Constitutional: Well developed, well nourished, no acute distress, non-toxic appearance. HENT: Normocephalic, atraumatic, bilateral external ears normal, oropharynx moist, no oral exudates, nose normal. Eyes: PERRLA, EOMI, conjunctiva normal, no discharge. Pupils 4 mm. Neck: Normal range of motion, no tenderness, supple, no stridor. Cardiovascular:Heart rate regular rhythm, no murmur heart sounds S1-S2, no abnormalities per auscultation. Lungs & Thorax: Bilateral breath sounds clear to auscultation all lung lang Abdomen: Bowel sounds normal all 4 quadrants to auscultation, soft, no tenderness, no masses, no pulsatile masses. Skin: Warm, dry, no erythema, no rash. Patient has well-healing 1 stage I diabetic pressure ulcer to left lateral foot near pinky toe without signs of infectious process, 3 stage I pressure ulcers to bottom of right foot, well-heal ing, without signs of infectious process. Back: No tenderness, no CVA tenderness. Extremities: No tenderness, no cyanosis, no clubbing, ROM intact, no edema. Neurologic: Alert and oriented X 3, normal motor function, normal sensory f unction, no focal deficits noted. Psychologic: Affect normal, judgement normal, mood normal. Current Patient Data: Labs: Laboratory Tests Test 02/10/20 15:09 White Blood Count 4.7 x10^3/uL (4.0-11.0) Red Blood Count 3.53 x10^6/uL (3.50-5.40) Hemoglobin 9.2 g/dL (12.0-15.5) L Hematocrit 28.6 % (36.0-47.0) L Mean Corpuscular Volume 81 fL (79-100) Mean Corpuscular Hemoglobin 26 pg (25-35) Mean Corpuscular Hemoglobin Concent 32 g/dL (31-37) Red Cell Distribution Width 15.7 % (11.5-14.5) H Platelet Count 167 x10^3/uL (140-400) Neutrophils (%) (Auto) 83 % (31-73) H Lymphocytes (%) (Auto) 10 % (24-48) L Monocytes (%) (Auto) 6 % (0-9) Eosinophils (%) (Auto) 1 % (0-3) Basophils (%) (Auto) 0 % (0-3) Neutrophils # (Auto) 3.9 x10^3/uL (1.8-7.7) Lymphocytes # (Auto) 0.5 x10^3/uL (1.0-4.8) L Monocytes # (Auto) 0.3 x10^3/uL (0.0-1.1) Eosinophils # (Auto) 0.0 x10^3/uL (0.0-0.7) Basophils # (Auto) 0.0 x10^3/uL (0.0-0.2) Sodium Level 140 mmol/L (136-145) Potassium Level 3.9 mmol/L (3.5-5.1) Chloride Level 101 mmol/L (98-107) Carbon Dioxide Level 29 mmol/L (21-32) Anion Gap 10 (6-14) Blood Urea Nitrogen 12 mg/dL (7-20) Creatinine 0.9 mg/dL (0.6-1.0) Estimated GFR (Cockcroft-Gault) 61.7 BUN/Creatinine Ratio 13 (6-20) Glucose Level 115 mg/dL (70-99) H Calcium Level 9.1 mg/dL (8.5-10.1) Total Bilirubin 0.4 mg/dL (0.2-1.0) Aspartate Amino Transferase (AST) 23 U/L (15-37) Alanine Aminotransferase (ALT) 30 U/L (14-59) Alkaline Phosphatase 51 U/L (46-116) Total Protein 7.6 g/dL (6.4-8.2) Albumin 3.8 g/dL (3.4-5.0) Albumin/Globulin Ratio 1.0 (1.0-1.7) Laboratory Tests 02/10/20 15:09 Laboratory Tests 02/10/20 15:09 Vital Signs: Vital Signs Date Time Temp Pulse Resp B/P (MAP) Pulse Ox O2 Delivery O2 Flow Rate FiO2 02/10/20 15:41 93 16 117/76 (90) 100 Room Air 02/10/20 14:48 98.3 98.3 EKG: EKG: [] Radiology/Procedures: Radiology/Procedures: [] Course & Med Decision Making: Course & Med Decision Making Pertinent Labs and Imaging studies reviewed. (See chart for details) 69-year-old patient was brought to the emergency department today because she lives with her daughter and her son-in-law, her daughter and son-in-law are going out of town and they wanted her to be admitted to the hospital for anemia and for her to get a blood transfusion. Patient states that she has been anemic in the past and has had blood transfusions, but does not feel like she is that anemic today. Patient has diabetic foot ulcers that she cares for at home, patient states that she no longer sees wound care because she can do the same things they can do at home. Patient's vital signs reviewed labs were ordered non-concerning for acute anemia patient's hemoglobin hematocrit were at baseline after reviewing over the previous several years of ER and hospital admissions to [facility]. Patient's pressure ulcers were examined all well- healing stage I pressure ulcers which were dressed by ED nursing staff. Patient was discharged to home feeling confident that she did not need a blood transfusion and her son and daughter could go on their vacation. Patient was given return to ER precautions and concerns, was verbally understanding of ED discharge instructions, patient had no further questions or concerns, patient discharged home. Dragon Disclaimer: Dragon Disclaimer: This electronic medical record was generated, in whole or in part, using a voice recognition dictation system. Departure Departure Impression: Primary Impression: Feared condition not demonstrated Additional Impression: Diabetic foot ulcers Qualified Codes: E11.621 - Type 2 diabetes mellitus with foot ulcer; L97.501 - Non-pressure chronic ulcer of other part of unspecified foot limited to breakdown of skin Referrals: CHANDAN ROWELL DO (PCP) Additional Instructions: Continue taking care of your diabetic foot ulcers, follow-up with wound care soon. Return to the emergency department for worsening symptoms or for further concerns. Justicifation of Admission Dx: Justifications for Admission: Justification of Admission Dx: N/A MICHAEL SEGAL APRN Feb 10, 2020 17:29
[2020-02-10 17:45] VITALS: BP 112/79
== END 2020-02-10 17:45 | disposition home or self-care (01) ==
LOC: ER 14:38
DX: E11.621 Type 2 diabetes mellitus with foot ulcer (principal); L97.501 Non-pressure chronic ulcer of other part of unspecified foot limited to breakdown of skin; I10 Essential (primary) hypertension; Z90.710 Acquired absence of both cervix and uterus; Z95.0 Presence of cardiac pacemaker; Z98.890 Other specified postprocedural states; Z91.041 Radiographic dye allergy status; Z88.0 Allergy status to penicillin; Z88.2 Allergy status to sulfonamides
CPT/HCPCS: 36415; 80053; 85025; 87071; 87075; 99283